=== PATIENT | female | born 2000 ===

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

== ENCOUNTER → 2021-04-03 | Outpatient (CLI) | payer BC | LOC: LAB 17:08 → LAB SHORT 17:08 | DX: R31.9 Hematuria, unspecified (principal); R30.0 Dysuria; M54.9 Dorsalgia, unspecified | CPT/HCPCS: 87086 ==